=== PATIENT | female | born 1990 | race Caucasian/White ===

== ENCOUNTER 2020-12-03 21:17 | Emergency (ER) | payer OTHER, SELFPAY ==
[2018-11-08 17:17] VITALS: BMI 56.1
[2020-12-03 21:17] VITALS: BP 124/88; PULSE 114; RESP 16; TEMP 37.3; O2SAT 99; BMI 55.8
--- NOTE | 2020-12-03 22:38 | EKG12_ITS ---
Test Reason : DYSRHYTHMIA Blood Pressure : / mmHG Vent. Rate : 121 BPM Atrial Rate : 121 BPM P-R Int : 150 ms QRS Dur : 086 ms QT Int : 310 ms P-R-T Axes : 041 012 041 degrees QTc Int : 440 ms Sinus tachycardia Otherwise normal ECG Confirmed by VEE TIERNEY, MAGGY ([id number]), fan mail editor DANNY RECINOS ([id number]) on 12/05/2020 10:13:46 AM Referred By: Confirmed By:MAGGY BAXTER MD
--- NOTE | 2020-12-03 22:38 | RAD_ITS ---
STUDY: X-RAY CHEST REASON FOR EXAM: Female, 29 years old. chest pain TECHNIQUE: Single AP portable view of the chest. COMPARISON: 08/16/2013 FINDINGS: The lungs are clear and expanded. There is no demonstrated pleural abnormality. Normal size heart. Normal mediastinum and linda. Normal visualized pulmonary arteries. Normal visualized aortic arch and descending thoracic aorta. Normal visualized thoracic spine. Normal visualized ribs, clavicles, and shoulders. There is no demonstrated abnormality of the visualized soft tissue structures of the upper abdomen. RAD/Chest 1 View (Portable) IMPRESSION: Normal x-ray examination of the chest. Electronically Signed: Dain Sotomayor DO at 23:29 EDT Tel , Service support ,
--- NOTE | 2020-12-03 22:39 | EDS_ITS ---
HPI History of Present Illness Chief Complaint: General Illness Informant: patient Narrative Narrative: 29-year-old female presents with multiple complaints. She tells me that today she has been experiencing tightness in her chest which she states she really has been focusing more on tonight. She also notes 6 days of occipital neck headache. She states that she has had that in the past and was told it was due to short tendons. She states she is fatigued. She has been very stressed at work. She states that she last ate a full meal yesterday but has been snacking at work. She is short staffed at work. She feels chilled. No fevers however. She denies any cough or shortness of breath. She notes chronic diarrhea. [facility] Medical History (Updated 12/04/20 @ 00:[address] 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 Home Medications albuterol sulfate [Ventolin HFA] 1 - 2 puff INHALATION Q4H PRN PRN 08/16/13 [History Last Taken Unknown] pantoprazole 20 mg PO DAILY 10/29/15 [History Last Taken 10/22/15] Migraine Cocktail PRN PRN 04/25/16 [History Last Taken Unknown] dextroamphetamine-amphetamine [Adderall 20 mg Tablet] 20 mg PO DAILY 04/25/16 [History Last Taken Unknown] naproxen [Naprosyn] 500 mg PO BID #20 tab 04/25/16 [Rx Last Taken Unknown] cyclobenzaprine 10 mg PO TID PRN #15 tablet 05/19/16 [Rx Last Taken Unknown] Allergy/AdvReac Type Severity Reaction Status Date / Time No Known Allergies Allergy Verified 12/03/20 22:07 Social History (Updated 12/03/20 @ 22:[address] Shun Cristina DO) Smoking Status: Never smoker substance use type: does not use ROS ROS ED Constitutional Constitutional ED: Reports chills; Denies fever(s) or weight loss Eyes Eyes: Denies change in vision or diplopia ENT ENT ED: Denies ear pain, rhinorrhea or sore throat Cardiovascular Cardiovascular: Reports chest pain; Denies orthopnea, palpitations or racing heartbeat Respiratory/Chest Respiratory/Chest: Denies cough, dyspnea or orthopnea Gastrointestinal Gastrointestinal: Denies abdominal pain, diarrhea, nausea or vomiting Genitourinary Genitourinary ED: Denies dysuria, hematuria or urinary frequency Musculoskeletal Musculoskeletal: Reports myalgias; Denies arthralgias Integumentary Denies abscess or rash Neurologic Neurologic: Reports headache(s) and weakness Psychiatric Psychiatric: Denies anxiety, depression, suicidal ideation or suicidal thoughts Endocrine Endocrinology: Denies polydipsia, polyphagia or polyuria Allergic/Immunologic Allergic/Immunologic ED: Denies mouth swelling, tongue swelling or urticaria EXAM Physical Exam Const Vital Signs: 12/03/20 21:17 Temperature 99.2 F H Temperature Source Temporal Pulse Rate 114 H Respiratory Rate 16 Blood Pressure 124/88 H Blood Pressure Mean 100 Pulse Ox 99 Oxygen Delivery Method Room Air Positive well nourished, well developed and obese General Appearance ED: well developed Nutritional Appearance: obese HEENT Reports normocephalic, head/scalp atraumatic and moist mucous membranes Eyes PERRL and EOMs intact bilaterally Neck no lymphadenopathy, supple and no JVD Resp normal respiratory effort and clear to auscultation bilaterally Cardio regular rate, regular rhythm and no murmurs GI normal to inspection, nondistended, normoactive bowel sounds and non-tender Palpation: soft Back/Spine no CVA tenderness and normal ROM Extremity normal to inspection General Extremety ED: Negative for edema General Extremity: Negative for edema Neuro oriented x3 and CN's II-XII intact bilaterally Sensorium / Orientation: alert Motor Exam: strength 5/5 throughout Psych mental status grossly normal Mood & Affect: tearful; Negative for depressed Skin no rashes or lesions noted and no wounds MDM MDM MDM Narrative Medical decision making narrative: My interpretation of the chest x-ray is no acute process. Basic blood work was unremarkable. Urinalysis negative. Patient received IV fluids Toradol Compazine and Benadryl. Covid is negative. Repeat examination her headache is improved. I think the patient is physically exhausted. I think that she would benefit from rest. I do not feel the patient has a medical emergency tonight that would necessitate an admission. Patient is comfortable with this plan return if worsening or concerns Lab Data Attestation: I reviewed the patient's lab results. Labs: Laboratory Results - last 24 hr 12/03/20 12/03/20 12/03/20 22:44 23:05 23:05 WBC 6.1 RBC 4.85 Hgb 13.0 Hct 40.3 MCV 83.1 MCH 26.8 L MCHC 32.3 RDW Std Deviation 38.1 RDW Coeff of Rachele 12.5 Plt Count 164 MPV 10.8 Immature Gran % (Auto) 0.800 Neut % (Auto) 57.0 Lymph % (Auto) 31.7 [place] % (Auto) 6.3 Eos % (Auto) 3.5 Baso % (Auto) 0.7 Absolute Neuts (auto) 3.5 Absolute Lymphs (auto) 1.92 Nucleated RBC % 0 Differential Comment SCANNED Reactive Lymphocytes RARE Sodium 133 L Potassium 3.6 Chloride 102 Carbon Dioxide 23.0 Anion Gap 8 BUN 6 L Creatinine 0.76 Estim Creat Clear Calc 116.20 Est GFR (MDRD) Af Amer 118 Est GFR (MDRD) Non-Af 97 BUN/Creatinine Ratio 7.9 L Glucose 112 H Calcium 8.5 Total Bilirubin 0.70 AST 53 H ALT 71 H Alkaline Phosphatase 134 H Troponin I High Sens 4.3 Total Protein 7.6 Albumin 3.6 Globulin 4.0 Albumin/Globulin Ratio 0.9 Urine Color Yellow Urine Clarity Clear Urine pH 6.0 Ur Specific Gu[place] 1.010 Urine Protein 30 H Urine Glucose (UA) Normal Urine Ketones Negative Urine Occult Blood 150 H Urine Nitrite Negative Urine Bilirubin Negative Urine Urobilinogen 1 H Ur Leukocyte Esterase 25 H Urine RBC 0-5 SEEN Urine WBC 0 SEEN Ur Squamous Epith Cells 0 SEEN Urine Bacteria RARE Urine Mucus RARE Urine Test Negative Radiography Diagnostic Testing: Radiology Impression Chest X-Ray 12/03/20 22:38 IMPRESSION: Normal x-ray examination of the chest. Electronically Signed: Dain Sotomayor DO at 23:29 EDT Tel , Service support , EKG Initial EKG: Attestation: I personally reviewed and interpreted this EKG as follows: Comments: EKG demonstrates a sinus tachycardia at a rate of 121. No concerning features of ACS or ectopy noted. Discharge Plan Triage Chief Complaint: General Illness ED Provider: Shun Cristina Dx/Rx/DC Orders Clinical Impression: Headache, Chest pain, Fatigue Instructions: Healthy Sleep Habits Prescriptions: No Action albuterol sulfate [Ventolin HFA] 1 INHALER inhaler 1 - 2 puff inhalation Q4H PRN PRN (Reason: Shortness Of Breath) RF: 0 pantoprazole 20 MG tablet 20 mg PO DAILY RF: 0 dextroamphetamine-amphetamine [Adderall] 20 MG tablet 20 mg PO DAILY RF: 0 Migraine Cocktail PRN PRN (Reason: Migraine Symptoms) RF: 0 naproxen [Naprosyn] 500 MG tablet 500 mg PO BID Qty: 20 RF: 0 cyclobenzaprine 10 MG tablet 10 mg PO TID PRN (Reason: Muscle Spasm) Qty: 15 RF: 0 Stand Alone Forms: ED Work / School Excuse Primary Care Provider: Sp Christiansen Referrals: Sp Christiansen DO [Primary Care Provider] - 3-5 Days Disposition Disposition: Home, Self Care
[2020-12-03 22:52] LABS: Squamous Epithelial Cells - UA 0 SEEN /hpf (5-10); White Blood Cells 0 SEEN /hpf (0-5)
[2020-12-03] MEDS: DiphenhydrAMINE 50 MG/ML Syringe IV (22:56)
[2020-12-03] MEDS: 0.9% Normal Saline 1,000 ML 1000 ML IV (22:56)
[2020-12-03] MEDS: proCHLORPERazine 10 MG/2 ML Vial IV (22:57)
[2020-12-03 22:58] LABS: Color, Urine Yellow (Yellow); Glucose, Dipstick Normal (Normal); Ketone-Dipstick Negative (Negative); Leukocyte Esterase-Dipstick 25 /ul (Negative); Nitrite-Dipstick Negative (Negative); Occult Blood-Urine 150 /ul (Negative); Protein-Dipstick 30 mg/dl (Negative); Urine Bilirubin Dipstick Negative (Negative); Urine Clarity Clear (Clear); Urine Urobilinogen 1 mg/dl (Normal)
[2020-12-03] MEDS: Ketorolac 30 MG/ML Syringe IV (22:58)
[2020-12-03 23:05] LABS: Bacteria RARE /hpf (None Seen); Mucous, Urine RARE /hpf (<or=2+); Red Blood Cells-Urine 0-5 SEEN /hpf (0-5)
[2020-12-03 23:06] LABS: Internal QC Validated? YES +Cl - CLEAR BKGD; Pregnancy, Urine Negative Negative
[2020-12-03 23:28] LABS: Absolute Lymphocyte Count 1.92 X10^3/uL (0.83-4.51); Absolute Neutrophil Count 3.5 X10^3/uL (2.0-7.7); Basophil# 0.04 X10^3/uL; Basophil% 0.7 % (0-1); Eosinophil# 0.21 X10^3/uL; Eosinophils% 3.5 % (0-5); Hematocrit 40.3 % (37-47); Lymphocyte # 1.92 X10^3/ul (0.83-4.51); Lymphocyte % 31.7 % (19-41); Mean Corp Hgb Conc 32.3 g/dL (32-36); Mean Corpuscular Hgb 26.8 pg (27.0-32.0); Mean Corpuscular Volume 83.1 fL (81-99); Mean Platelet Vol. 10.8 fl (6.2-12.0); Monocyte# 0.38 X10^3/uL; Monocyte% 6.3 % (0-10); NRBC Flagged by Analyzer 0 % (0-5); Neutrophil # 3.46 X10^3/uL (2.7-7.7); POSITIVE MORPHOLOGY YES; Platelet Count 164 K/mm3 (150-450); RBC Distribution Width CV 12.5 % (11.6-14.6); RBC Distribution Width SD 38.1 fl (35.1-43.9); Red Blood Count 4.85 M/mm3 (4.2-5.4); White Blood Count 6.1 K/mm3 (4.4-11.0)
[2020-12-03 23:32] LABS: ALB/GLOB Ratio 0.9 RATIO (0.9-2.4); AST(SGOT) 53 U/L (15-37); Alanine Aminotransfer ALT/SGPT 71 U/L (13-56); Albumin, Serum 3.6 g/dL (3.2-5.0); Alkaline Phosphatase 134 U/L (45-117); Anion Gap 8 (5-15); BUN 6 mg/dL (7-18); BUN/Creat Ratio 7.9 RATIO (10-20); Calcium,Total 8.5 mg/dL (8.5-10.1); Chloride 102 mmol/L (98-107); Creatinine, Serum 0.76 mg/dL (0.55-1.02); Differential Indicated SCAN CRITERIA MET; EST Glomerular Filtration Rate 97 mL/min (>60); Est Glom Filt Rate - Afr Amer 118 mL/min (>60); Glucose 112 mg/dL (74-106); Potassium 3.6 mmol/L (3.5-5.1); Protein, Total 7.6 g/dL (6.4-8.2); Sodium Level 133 mmol/L (136-145); Troponin-I HS 4.3 pg/mL (3.0-53.7)
[2020-12-03 23:57] LABS: Differential Comment SCANNED
[2020-12-03 23:58] LABS: Reactive Lymphocyte RARE
[2020-12-04 00:10] VITALS: BP 126/80; PULSE 90; RESP 16; O2SAT 97
== END 2020-12-04 00:12 | disposition home or self-care (01) ==
PROVIDERS: Emergency Provider Emergency Medicine; PCP Student in an Organized Health Care Education/Training Program
DX: R51.9 Headache, unspecified (principal); R07.89 Other chest pain; R53.83 Other fatigue; K52.9 Noninfective gastroenteritis and colitis, unspecified; E66.9 Obesity, unspecified; Z68.43 Body mass index [BMI] 50.0-59.9, adult
CPT/HCPCS: 71045; 80053; 81001; 81025; 84484; 85025; 87426; 93005; 96361; 96374; 96375; 99282; J7030

== ENCOUNTER 2021-10-08 06:47 | Emergency (ER) | payer OTHER, SELFPAY ==
[2021-10-08 06:47] VITALS: BP 154/73; PULSE 96; RESP 18; TEMP 35.6; O2SAT 99; BMI 57.7
--- NOTE | 2021-10-08 07:08 | ED.VIS.GI ---
HPI HPI - GI History of Present Illness Chief Complaint: Abd Pain Informant: patient Narrative Narrative: Patient is a 30-year-old female with history of GERD and cholelithiasis status post cholecystectomy presenting with abdominal discomfort, nausea, passing gas. Patient states she frequently gets episodes like this but will last for 2 days. This time her symptoms been going on for the past 8 days. Patient states she gets a discomfort and pressure epigastric that radiates down her abdomen. She states there is pressure in my gut. She states that she has had very loose/watery stools since this started and her belching and flatulence feel that she is rotten from the inside. Patient states that every time she gets these episodes her bowel movements are passed out in color and foamy. Patient states these happen a couple times a month. She denies any fever or chills. Denies any other change in the symptoms except for the longevity of it. States she has been compliant with her pantoprazole. Has taken multiple spon-wmo-svgebrz medications including Pepto-Bismol with no relief of her symptoms. Came in for further evaluation. Patient does work in a [place] denies any history of C. difficile. Patient's had endoscopy before and chart review shows that she had a pH pill study in 2016. 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, chronic Home Medications albuterol sulfate [Ventolin HFA] 1 - 2 puff INHALATION Q4H PRN PRN 08/16/13 [History Last Taken Unknown] pantoprazole 20 mg PO DAILY 10/29/15 [History Last Taken 10/22/15] dextroamphetamine-amphetamine 30 mg PO DAILY 10/08/21 [History Last Taken Unknown] dicyclomine 20 mg PO TID PRN #20 tab 10/08/21 [Rx Last Taken Unknown] ferrous sulfate [FeroSul] 325 mg PO BID 10/08/21 [History Last Taken Unknown] gabapentin 600 mg PO TID 10/08/21 [History Last Taken Unknown] metoprolol tartrate 25 mg PO DAILY 10/08/21 [History Last Taken Unknown] ondansetron 4 mg PO Q6H PRN #20 tab 10/08/21 [Rx Last Taken Unknown] Allergy/AdvReac Type Severity Reaction Status Date / Time No Known Allergies Allergy Verified 10/08/21 06:52 Social History Smoking Status: Never smoker substance use type: does not use ROS ROS ED Constitutional Constitutional ED: Denies chills or fever(s) ENT ENT ED: Denies rhinorrhea or sore throat Cardiovascular Cardiovascular: Denies chest pain or palpitations Respiratory/Chest Respiratory/Chest: Denies cough or dyspnea Gastrointestinal Gastrointestinal: Reports abdominal pain, diarrhea, nausea and vomiting; Denies melena Genitourinary Genitourinary ED: Denies dysuria, hematuria or urinary frequency Musculoskeletal Musculoskeletal: Denies arthralgias or myalgias Integumentary Denies rash Neurologic Neurologic: Denies headache(s) or weakness Psychiatric Psychiatric: Denies depression EXAM Physical Exam Const Vital Signs: 10/08/21 06:47 Temperature 96.1 F L Temperature Source Oral Pulse Rate 96 Respiratory Rate 18 Blood Pressure 154/73 H Blood Pressure Mean 100 Pulse Ox 99 Oxygen Delivery Method Room Air Positive well nourished and well developed General Appearance ED: well developed HEENT Reports moist mucous membranes normocephalic and atraumatic Eyes PERRL and EOMs intact bilaterally Neck supple Resp normal respiratory effort and clear to auscultation bilaterally Cardio regular rate, regular rhythm and no murmurs GI Auscultation: hypoactive bowel sounds Palpation: soft and tender epigastric; Negative for guarding or rigid Extremity full ROM General Extremety ED: Negative for edema General Extremity: Negative for edema Neuro Sensorium / Orientation: alert Motor Exam: strength 5/5 throughout; Negative for general weakness Psych mental status grossly normal Skin Lesions: no lesions Rashes: no rashes MDM MDM MDM Narrative Medical decision making narrative: Patient evaluated for worsening abdominal pain for the past 8 days. Has had multiple similar episodes but is never lasted this long. Has been scoped in the past has not seen anyone recently. Patient has mild tenderness in her epigastric region. She appears nontoxic and in no acute distress. Does not clinically appear dehydrated. Vital signs are remarkable for mild hypertension 154/73. Work-up shows a leukocytosis of 13.6 however chart review shows that patient does have a chronic mild leukocytosis. CMP largely unremarkable. Lipase is low. CBC does show 2+ bacteria with 5-10 white blood cells but also 0-5 squamous cells. Patient does not have any urinary symptoms. Will send off for culture but defer treatment at this time. This was discussed with the patient. CT abdomen pelvis obtained does not show any acute process. She does not have an obstruction, signs of acute pain ascites and lab work is not consistent with choledocholithiasis. On repeat evaluation patient states she is starting to feel better. She be discharged with a prescription for Zofran and Bentyl. Is given referral for GI for outpatient follow-up. Is counseled return precautions. Patient verbalizes agreement understand this plan. Patient is not able to provide stool sample while in the emergency room. Lab Data Attestation: I reviewed the patient's lab results. Labs: Laboratory Results - last 24 hr 10/08/21 10/08/21 10/08/21 07:05 07:05 07:10 WBC 13.6 H RBC 4.42 Hgb 12.4 Hct 38.2 MCV 86.4 MCH 28.1 MCHC 32.5 RDW Std Deviation 39.4 RDW Coeff of Rachele 12.5 Plt Count 278 MPV 10.5 Immature Gran % (Auto) 0.200 Neut % (Auto) 52.0 Lymph % (Auto) 35.3 [place] % (Auto) 7.8 Eos % (Auto) 4.3 Baso % (Auto) 0.4 Absolute Neuts (auto) 7.1 Absolute Lymphs (auto) 4.81 H Nucleated RBC % 0 Differential Comment SCANNED Atypical Lymphocytes RARE Sodium 139 Potassium 3.6 Chloride 105 Carbon Dioxide 26.0 Anion Gap 8 BUN 10 Creatinine 0.77 Estim Creat Clear Calc 113.68 Est GFR (MDRD) Af Amer 115 Est GFR (MDRD) Non-Af 95 BUN/Creatinine Ratio 13.0 Glucose 94 Calcium 8.9 Total Bilirubin 0.30 AST 31 ALT 56 Alkaline Phosphatase 117 Total Protein 7.5 Albumin 3.4 Globulin 4.1 Albumin/Globulin Ratio 0.8 L Lipase 71 L Urine Color Yellow Urine Clarity Clear Urine pH 6.0 Ur Specific [place] 1.015 Urine Protein 15 H Urine Glucose (UA) Normal Urine Ketones 5 H Urine Occult Blood 50 H Urine Nitrite Negative Urine Bilirubin Negative Urine Urobilinogen Normal Ur Leukocyte Esterase 100 H Urine RBC 0-5 SEEN Urine WBC 5-10 SEEN Ur Squamous Epith Cells 0-5 SEEN Urine Bacteria 2+ Urine Mucus 0 SEEN Urine Test Negative Radiography Diagnostic Testing: Clinical Impression(s) from Imaging Studies Abdomen/Pelvis CT 10/08/21 07:12 IMPRESSION: No acute inflammatory process or bowel obstruction. Electronically Signed: Eliseo Stevenson MD (Brooks) at 8:27 EDT Reading Location ID and State: [facility] / [place] , Service support , Discharge Plan Triage Chief Complaint: Abd Pain ED Provider: Kimberly Bryant Dx/Rx/DC Orders Clinical Impression: Abdominal pain, Nausea alone, Diarrhea Instructions: ED Abdominal Pain Unkn Cause Fem, ED Diarrhea, Unknown Cause Prescriptions: New dicyclomine 20 mg tablet 20 mg PO TID PRN (Reason: abdominal discomfort) Qty: 20 RF: 0 ondansetron 4 mg tablet,disintegrating 4 mg PO Q6H PRN (Reason: nausea and vomiting) Qty: 20 RF: 0 No Action albuterol sulfate [Ventolin HFA] 1 INHALER inhaler 1 - 2 puff inhalation Q4H PRN PRN (Reason: Shortness Of Breath) RF: 0 pantoprazole 20 MG tablet 20 mg PO DAILY RF: 0 gabapentin 600 mg tablet 600 mg PO TID RF: 0 ferrous sulfate [FeroSul] 325 mg (65 mg iron) tablet 325 mg PO BID RF: 0 dextroamphetamine-amphetamine 30 mg tablet 30 mg PO DAILY RF: 0 metoprolol tartrate 25 mg tablet 25 mg PO DAILY RF: 0 Primary Care Provider: Sp Christiansen Referrals: Sp Christiansen DO [Primary Care Provider] - Carlos,DO Abelardo [STAFF PHYSICIAN] - As soon as possible Disposition Disposition: Home, Self Care
--- NOTE | 2021-10-08 07:12 | CT_ITS ---
STUDY: CT ABDOMEN AND PELVIS WITH CONTRAST REASON FOR EXAM: Female, 30 years old. Epigastric pain, vomiting, diarrhea RADIATION DOSAGE (If Supplied By Facility): CTDIvol = ( 52.75 ) mGy, DLP = ( 1993.87 ) mGycm TECHNIQUE: Transaxial images were obtained from the dome of the diaphragm to the symphysis pubis without oral contrast. IV 100mL Isovue-300 was administered. Sagittal and coronal images were reconstructed. Individualized dose optimization techniques were used for this CT. COMPARISON: None. FINDINGS: The visualized lung bases are unremarkable. The visualized portions of the heart are within normal limits. Normal liver. Gallbladder is absent or contracted. Normal spleen. Normal pancreas. Normal bilateral adrenal glands. Normal right kidney. Normal left kidney. Normal visualized stomach. Normal small intestine. Normal colon. The appendix is identified measuring 5-6 mm in diameter; no periappendiceal stranding/fluid. Normal abdominal aorta. Normal inferior vena cava. Normal retroperitoneum. Normal urinary bladder. Physiologic quantity of pelvic free fluid. IUD within the uterus. Normal abdominal wall. No destructive bony process. Bilateral L5 spondylolysis without substantial spondylolisthesis. CT/Abdomen/Pelvis W IV Cont ONLY IMPRESSION: No acute inflammatory process or bowel obstruction. Electronically Signed: Eliseo Stevenson MD ([place]) at 8:27 EDT ,
[2021-10-08 07:13] LABS: Absolute Lymphocyte Count 4.81 X10^3/uL (0.83-4.51); Absolute Neutrophil Count 7.1 X10^3/uL (2.0-7.7); Basophil# 0.06 X10^3/uL; Basophil% 0.4 % (0-1); Eosinophil# 0.59 X10^3/uL; Eosinophils% 4.3 % (0-5); Hematocrit 38.2 % (37-47); Hemoglobin 12.4 g/dL (12.0-15.0); Lymphocyte # 4.81 X10^3/ul (0.83-4.51); Lymphocyte % 35.3 % (19-41); Mean Corp Hgb Conc 32.5 g/dL (32-36); Mean Corpuscular Hgb 28.1 pg (27.0-32.0); Mean Corpuscular Volume 86.4 fL (81-99); Mean Platelet Vol. 10.5 fl (6.2-12.0); Monocyte# 1.06 X10^3/uL; Monocyte% 7.8 % (0-10); NRBC Flagged by Analyzer 0 % (0-5); Neutrophil # 7.09 X10^3/uL (2.7-7.7); POSITIVE MORPHOLOGY YES; Platelet Count 278 K/mm3 (150-450); RBC Distribution Width CV 12.5 % (11.6-14.6); RBC Distribution Width SD 39.4 fl (35.1-43.9); Red Blood Count 4.42 M/mm3 (4.2-5.4); White Blood Count 13.6 K/mm3 (4.4-11.0)
[2021-10-08 07:16] LABS: Differential Indicated SCAN CRITERIA MET
[2021-10-08 07:18] LABS: Mucous, Urine 0 SEEN /hpf (<or=2+)
[2021-10-08] MEDS: Ondansetron 4 MG/2 ML Vial IV (07:19)
[2021-10-08] MEDS: Dicyclomine 10 MG Capsule 20 MG PO (07:19)
[2021-10-08 07:21] LABS: Color, Urine Yellow (Yellow); Glucose, Dipstick Normal (Normal); Ketone-Dipstick 5 mg/dl (Negative); Leukocyte Esterase-Dipstick 100 /ul (Negative); Nitrite-Dipstick Negative (Negative); Occult Blood-Urine 50 /ul (Negative); Protein-Dipstick 15 mg/dl (Negative); Specific Gravity, Urine 1.015 (1.002-1.030); Urine Bilirubin Dipstick Negative (Negative); Urine Clarity Clear (Clear); Urine Urobilinogen Normal (Normal)
[2021-10-08 07:23] LABS: Internal QC Validated? YES +Cl - CLEAR BKGD; Pregnancy, Urine Negative Negative
[2021-10-08 07:28] LABS: Atypical Lymphocyte RARE %; Differential Comment SCANNED
[2021-10-08 07:31] LABS: ALB/GLOB Ratio 0.8 RATIO (0.9-2.4); AST(SGOT) 31 U/L (15-37); Alanine Aminotransfer ALT/SGPT 56 U/L (13-56); Albumin, Serum 3.4 g/dL (3.2-5.0); Alkaline Phosphatase 117 U/L (45-117); Anion Gap 8 (5-15); BUN 10 mg/dL (7-18); Calcium,Total 8.9 mg/dL (8.5-10.1); Chloride 105 mmol/L (98-107); Creatinine, Serum 0.77 mg/dL (0.55-1.02); EST Glomerular Filtration Rate 95 mL/min (>60); Est Glom Filt Rate - Afr Amer 115 mL/min (>60); Estimated Creatinine Clearance 113.68 ml/min; Globulin 4.1 g/dL (2.2-4.2); Glucose 94 mg/dL (74-106); Lipase 71 U/L (73-393); Potassium 3.6 mmol/L (3.5-5.1); Protein, Total 7.5 g/dL (6.4-8.2); Sodium Level 139 mmol/L (136-145)
[2021-10-08 07:33] LABS: Bacteria 2+ /hpf (None Seen); Red Blood Cells-Urine 0-5 SEEN /hpf (0-5); Squamous Epithelial Cells - UA 0-5 SEEN /hpf (5-10); White Blood Cells 5-10 SEEN /hpf (0-5)
[2021-10-08 08:47] VITALS: BP 113/55; PULSE 77; RESP 16; O2SAT 97
[2021-10-08 09:07] VITALS: BP 113/55; PULSE 81; RESP 16; O2SAT 97
== END 2021-10-08 09:25 | disposition home or self-care (01) ==
PROVIDERS: Emergency Provider Emergency Medicine; PCP Student in an Organized Health Care Education/Training Program; Visit Provider Emergency Medicine
DX: R10.13 Epigastric pain (principal); R11.0 Nausea; R19.7 Diarrhea, unspecified; Z90.49 Acquired absence of other specified parts of digestive tract; Z87.19 Personal history of other diseases of the digestive system; K21.9 Gastro-esophageal reflux disease without esophagitis
CPT/HCPCS: 74177; 80053; 81001; 81025; 83690; 85025; 96374; 99284; Q9967; A4216; J2405

== ENCOUNTER 2022-04-30 02:35 | Emergency (ER) | payer SELFPAY ==
[2022-04-30 02:37] VITALS: BP 129/79; PULSE 69; RESP 18; TEMP 37.1; O2SAT 98; BMI 58.8
--- NOTE | 2022-04-30 02:55 | RAD_ITS ---
INDICATION: pain EXAMINATION/TECHNIQUE: X-RAY - LEFT XR Ankle Min 3 Views COMPARISON: None. FINDINGS: SOFT TISSUES: Mild soft tissue swelling anterior and lateral ankle. No radiopaque foreign body detected. BONES/JOINTS: Nondisplaced fracture proximal fifth metatarsal. Normal alignment. Preservation of the joint space(s). No suspicious osseous lesion observed. RAD/Ankle min 3 Views IMPRESSION: Nondisplaced fracture proximal left fifth metatarsal. Electronically Signed: Trent Wilkerson MD at 3:53 EST ,
[2022-04-30] MEDS: oxyCODONE 5 MG Tablet 10 MG PO (03:22)
--- NOTE | 2022-04-30 04:10 | RAD_ITS ---
INDICATION: pain EXAMINATION/TECHNIQUE: X-RAY - LEFT XR Foot Min 3 Views COMPARISON: None. FINDINGS: SOFT TISSUES: Soft tissue swelling lateral foot. No radiopaque foreign body detected. BONES/JOINTS: Nondisplaced transverse fracture proximal fifth metatarsal. Normal alignment. Preservation of the joint space(s). No suspicious osseous lesion observed. RAD/Foot min 3 Views IMPRESSION: Nondisplaced fracture base of left fifth metatarsal. Electronically Signed: Trent Wilkerson MD at 4:31 EST ,
--- NOTE | 2022-04-30 04:45 | EDS_ITS ---
HPI History of Present Illness Chief Complaint: Lower Extremity Injury Narrative Narrative: Is a 31-year-old female who was recently seen by podiatry with concern for possible stress fracture and placed in a walking boot. She states that she was at home this evening making her bed while she was wearing her walking boot and felt a pop. She states since that time she has had pain and swelling to her left foot makes it difficult to ambulate. 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, chronic Home Medications albuterol sulfate 90 mcg/actuation aerosol inhaler (Ventolin HFA) 1 - 2 puff inhalation Q4H PRN PRN Shortness Of Breath 08/16/13 [History Last Taken Unknown] pantoprazole 20 mg tablet,delayed release 20 mg PO DAILY 10/29/15 [History Last Taken 10/22/15] dextroamphetamine-amphetamine 30 mg tablet 30 mg PO DAILY 10/08/21 [History Last Taken Unknown] dicyclomine 20 mg tablet 20 mg PO TID PRN abdominal discomfort #20 tabs 10/08/21 [Rx Last Taken Unknown] ferrous sulfate 325 mg (65 mg iron) tablet (FeroSul) 325 mg PO BID 10/08/21 [History Last Taken Unknown] gabapentin 600 mg tablet 600 mg PO TID 10/08/21 [History Last Taken Unknown] metoprolol tartrate 25 mg tablet 25 mg PO DAILY 10/08/21 [History Last Taken Unknown] ondansetron 4 mg disintegrating tablet 4 mg PO Q6H PRN nausea and vomiting #20 tabs 10/08/21 [Rx Last Taken Unknown] oxycodone-acetaminophen 5 mg-325 mg tablet (Percocet) 1 tab PO Q6H PRN pain 3 days #12 tabs 04/30/22 [Rx Last Taken Unknown] Allergy/AdvReac Type Severity Reaction Status Date / Time No Known Allergies Allergy Verified 04/30/22 02:36 Surgical History no surgical history Social History Smoking Status: Never smoker substance use type: does not use ROS ROS ED Constitutional Constitutional ED: Denies chills or fever(s) ENT ENT ED: Denies sore throat Cardiovascular Cardiovascular: Denies chest pain Respiratory/Chest Respiratory/Chest: Denies cough or dyspnea Gastrointestinal Gastrointestinal: Denies abdominal pain, diarrhea, nausea or vomiting Genitourinary Genitourinary ED: Denies dysuria Musculoskeletal Musculoskeletal: Reports other Details: Positive left foot/ankle pain Integumentary Denies rash Neurologic Neurologic: Denies headache(s) or paresthesias Hematologic/Lymphatic Hematologic/Lymphatic: Denies easy bleeding or easy bruising EXAM Physical Exam Const Vital Signs: 04/30/22 02:37 04/30/22 04:57 Temperature 98.7 F Temperature Source Temporal Pulse Rate 69 65 Respiratory Rate 18 18 Blood Pressure 129/79 H 124/68 H Blood Pressure Mean 95 Pulse Ox 98 97 Oxygen Delivery Method Room Air Positive well nourished, well developed and obese General Appearance ED: well developed Nutritional Appearance: obese Eyes PERRL and EOMs intact bilaterally Neck supple Resp normal respiratory effort and clear to auscultation bilaterally Cardio regular rate and regular rhythm Extremity Extremity Narrative: There is soft tissue swelling with faint ecchymosis to the lateral aspect of the left foot and extends from the midportion of the fifth metatarsal towards the lateral malleolus. There is pain with palpation over top the base of the fifth metatarsal and in the lateral joint space but not over top the lateral malleolus. Achilles tendon is intact and ankle ligaments are stable. Neuro oriented x3 and CN's II-XII intact bilaterally Sensorium / Orientation: alert Psych mental status grossly normal Skin no rashes or lesions noted Skin Narrative: Soft tissue swelling with faint ecchymosis to the left foot/ankle as documented above MDM MDM MDM Narrative Medical decision making narrative: Patient presented to the ER with report of left foot/ankle pain that developed while she was standing and wearing her walking boot. By exam there is mild swelling and ecchymosis concerning for fracture so x-rays were obtained. These confirmed a fifth metatarsal fracture. The patient is neurovascularly intact the fracture is closed and therefore do not feel there is need for emergent podiatry or orthopedic consultation. As the fracture does not extend to the joint space I think she is appropriate to continue to wear her walking boot but to not place weight on the area with crutches. She will follow-up with her front end java developer in the next few days to discuss further treatment options such as casting but at this time as the fracture is closed and she is neurovascular intact and has a way to stabilize the fracture with her boot she is otherwise safe for discharge. Radiography Diagnostic Testing: Clinical Impression(s) from Imaging Studies Ankle X-Ray 04/30/22 02:55 IMPRESSION: Nondisplaced fracture proximal left fifth metatarsal. Electronically Signed: Trent Wilkerson MD at 3:53 EST , Foot X-Ray 04/30/22 04:10 IMPRESSION: Nondisplaced fracture base of left fifth metatarsal. Electronically Signed: Trent Wilkerson MD at 4:31 EST , X-ray of the left ankle and foot as interpreted by the emergency medicine physician reveals a nondisplaced fracture of the base of the left fifth metatarsal. Discharge Plan Triage Chief Complaint: Lower Extremity Injury ED Provider: Cuba Ortiz Dx/Rx/DC Orders Clinical Impression: Closed nondisplaced fracture of fifth left metatarsal bone Instructions: Fifth Metatarsal Fx, ED Fracture, Foot Prescriptions: New oxycodone-acetaminophen [Percocet] 5-325 mg tablet 1 tab PO Q6H PRN (Reason: pain) 3 Days Qty: 12 0RF No Action albuterol sulfate [Ventolin HFA] 1 INHALER inhaler 1 - 2 puff inhalation Q4H PRN PRN (Reason: Shortness Of Breath) pantoprazole 20 MG tablet 20 mg PO DAILY gabapentin 600 mg tablet 600 mg PO TID Label Comments: take 1 tablet by mouth three times a day ferrous sulfate [FeroSul] 325 mg (65 mg iron) tablet 325 mg PO BID Label Comments: take 1 tablet by mouth twice a day dextroamphetamine-amphetamine 30 mg tablet 30 mg PO DAILY Label Comments: take 1 tablet by mouth twice a day metoprolol tartrate 25 mg tablet 25 mg PO DAILY Label Comments: take 1 tablet by mouth once daily dicyclomine 20 mg tablet 20 mg PO TID PRN (Reason: abdominal discomfort) Qty: 20 0RF ondansetron 4 mg tablet,disintegrating 4 mg PO Q6H PRN (Reason: nausea and vomiting) Qty: 20 0RF Stand Alone Forms: ED Work / School Excuse Primary Care Provider: Sp Christiansen Referrals: Sp Christiansen DO [Primary Care Provider] - Anshul Love DPM [Med Staff - Active Staff] - Activity Restrictions/Additional Instructions: Continue to wear your boot because of the foot fracture found on today's x-ray and use crutches to help with ambulation and try not to put weight on the left foot. Follow-up with your front end java developer for repeat evaluation and return to the ER should you have any further concerns. Disposition Disposition: Home, Self Care Discharge Date/Time: 04/30/22 04:58
[2022-04-30 04:57] VITALS: BP 124/68; PULSE 65; RESP 18; O2SAT 97
== END 2022-04-30 04:58 | disposition home or self-care (01) ==
PROVIDERS: Emergency Provider Emergency Medicine; PCP Student in an Organized Health Care Education/Training Program; Visit Provider Emergency Medicine
DX: S92.355A Nondisplaced fracture of fifth metatarsal bone, left foot, initial encounter for closed fracture (principal); X58.XXXA Exposure to other specified factors, initial encounter; Y92.9 Unspecified place or not applicable; Y93.01 Activity, walking, marching and hiking; Z79.899 Other long term (current) drug therapy
CPT/HCPCS: 73610; 73630; 99284

== ENCOUNTER → 2024-04-11 | Outpatient (CLI) | payer OTHER, SELFPAY ==
--- NOTE | 2024-04-11 10:50 | RAD_ITS ---
INDICATION: PAIN EXAMINATION/TECHNIQUE: X-RAY - LEFT XR Shoulder 3 Views COMPARISON: FINDINGS: SOFT TISSUES: No soft tissue swelling or gas. No radiopaque foreign body. BONES/JOINTS: No acute fracture or subluxation.. Normal alignment. Preservation of the joint space.. No sclerotic or destructive changes observed. RAD/Shoulder min 2 Views IMPRESSION: Negative. Electronically Signed: Chris Kenny DO at 8:57 EST ,
== END | disposition home or self-care (01) ==
LOC: RAD 10:45
PROVIDERS: PCP Student in an Organized Health Care Education/Training Program; Referring Provider Nurse Practitioner Family; Visit Provider Nurse Practitioner Family
DX: M25.512 Pain in left shoulder (principal)
CPT/HCPCS: 73030